=== PATIENT | male | born 1960 | race Caucasian/White ===

== ENCOUNTER 2018-02-05 08:37 | Outpatient (CLI) | payer MEDICAID | END 2018-02-05 23:59 | disposition home or self-care (01) | LOC: VAS 08:37 | PROVIDERS: ATTEND Surgery | DX: R22.42 Localized swelling, mass and lump, left lower limb (principal) | CPT/HCPCS: 93971 ==

== ENCOUNTER 2018-03-19 07:16 | Day surgery (SDC) | payer MEDICAID ==
[2018-03-15 14:24] LABS: BASOPHILS % (AUTO) 0.7 % (0-1); EOSINOPHILS # (AUTO) 0.1 X10'3 (0-0.9); EOSINOPHILS % (AUTO) 0.8 % (0-6); LYMPHOCYTES # (AUTO) 1.8 X10'3 (1.1-4.8); LYMPHOCYTES % (AUTO) 28.3 % (21-51); MEAN CORPUSCULAR HEMOGLOBIN 29.5 PG (27.0-31.0); MEAN CORPUSCULAR HGB CONC 32.2 % (33.0-36.5); MEAN CORPUSCULAR VOLUME 91.7 FL (78-98); MEAN PLATELET VOLUME 7.9 FL (7.4-10.4); MONOCYTES # (AUTO) 0.5 X10'3 (0-0.9); MONOCYTES % (AUTO) 7.4 % (2-12); NEUTROPHILS % (AUTO) 62.8 % (42-75); PRE OP HEMATOCRIT 44.9 % (42.0-52.0); PRE OP HEMOGLOBIN 14.4 g/dL (14.0-17.9); PRE OP PLATELET COUNT 300 X10'3 (140-440); RED CELL DISTRIBUTION WIDTH 13.5 % (11.5-14.5)
[2018-03-15 14:25] LABS: CLARITY,URINE CLEAR (Clear); COLOR,URINE YELLOW (Yellow); GLUCOSE, URINE NEGATIVE (Neg); KETONES,URINE NEGATIVE (Neg); LEUKOCYTE ESTERASE ,URINE NEGATIVE (Neg); NITRITES, URINE NEGATIVE (Neg); OCCULT BLOOD,URINE NEGATIVE (Neg); PH,URINE 5.5 (4.8-8.0); PROTEIN,URINE NEGATIVE (Neg); UROBILINOGEN,URINE 0.2 E.U/dL (0.2-1.0)
[2018-03-15 14:35] LABS: UA COLLECTION TYPE CLN CATCH MIDSTREAM
[2018-03-15 14:38] LABS: ALBUMIN 4.1 G/DL (3.4-5.0); ALBUMIN/GLOBULIN RATIO 1.3 (1.1-1.5); ALKALINE PHOSPHATASE 81 IU/L (46-116); BLOOD UREA NITROGEN 16 MG/DL (7-18); CALCIUM 9.2 MG/DL (8.5-10.1); CHLORIDE 101 MMOL/L (99-107); PRE OP ALT 22 U/L (30-65); PRE OP ANION GAP 7 (8-16); PRE OP AST 14 U/L (10-37); PRE OP BILIRUB, TOTAL 0.4 MG/DL (0.0-1.0); PRE OP GLUCOSE 123 MG/DL (70-104); PRE OP POTASSIUM 4.7 MMOL/L (3.4-5.1); PRE OP SODIUM 139 MMOL/L (135-145); TOTAL CARBON DIOXIDE 30.6 MMOL/L (24-32); TOTAL PROTEIN 7.2 G/DL (6.4-8.2); eGFR 76 ML/MIN
[2018-03-19] VITALS (9 sets, daily range): BP systolic 112–131; BP diastolic 72–81
[~2018-03-19] VITALS: Ht 190.5 cm; Wt 76.9 kg
[~2018-03-19 07:16] MED LIST: ASPI-611 PO; DILT180C56 PO; ENAL20TA75 PO; cefazolin/dext.iso 2gm/100 ML IV ONE; famotidine 20mg tablet PO ONE; ringers solution, lacted 1,000 ML IV SCH
[2018-03-19] MEDS ORDERED: BUPIVAcaine/PF 2.5mg/ml (0.25%) 10ml vial ONE (07:34)
[2018-03-19] MEDS ORDERED: LIDOcaine 1% 30ml preserv. free vial ONE (09:17)
[2018-03-19] MEDS ORDERED: MIDAZolam 5mg/5ml vial ONE (09:33)
[2018-03-19] MEDS ORDERED: propofol inj 20 ML IV ONE (10:00)
--- NOTE | 2018-03-19 10:15 | NUR ---
Received from OR via PAO, accompanied by Anesthesiologist DR NAJERA and report given by Anesthesiologist. TOM FERRARO, MANJIT, DENIES PAIN, LEFT CALF W/FOAM TAPE COVERING SHY, DEANA. Addendum: 03/19/18 at 1153 by Bell Banerjee RN Amended: Links added.
[2018-03-19] MEDS ORDERED: proCHLORperazine 10 MG/2 ml inj IV PRN (10:20)
[2018-03-19] MEDS ORDERED: ondansetron/PF 4mg/2ml inj IV PRN (10:20)
[2018-03-19] MEDS ORDERED: ringers solution, lacted 1,000 ML IV SCH (10:20)
[2018-03-19] MEDS ORDERED: meperidine/PF 25mg/ml syringe IV PRN (10:20)
[2018-03-19] MEDS ORDERED: ketorolac trometh. 30mg/ml inj. IV ONE (10:20)
[2018-03-19] MEDS ORDERED: LIDOcaine 1% 30ml preserv. free vial IJ ONE (10:26)
== END 2018-03-19 11:30 | disposition home or self-care (01) ==
LOC: PAS 07:16
PROVIDERS: ATTEND Surgery
DX: L72.0 Epidermal cyst (principal); I10 Essential (primary) hypertension; Z98.890 Other specified postprocedural states; Z88.8 Allergy status to other drugs, medicaments and biological substances; Z87.891 Personal history of nicotine dependence; Z79.82 Long term (current) use of aspirin; Z79.899 Other long term (current) drug therapy
CPT/HCPCS: 11403; 36415; 80053; 81003; 82948; 85025; 93005; A6449; J0690; J2250; J2704; J3490; A4615; A7000; J7120